=== PATIENT | female | born 1975 | race Hispanic/Latino ===

== ENCOUNTER 2019-04-07 09:47 | Emergency (ER) | payer SELFPAY ==
[~2019-04-07] VITALS: Ht 160 cm; Wt 74.0 kg
[~2019-04-07 09:47] MED LIST: FIORICET PO; NO MEDS; ONDANSETRON ODT8 MG PO; PERCOCET 5/325M1 TAB OR; SILVADENE1 % EX; ZOFRAN ODT4 MG PO
[2019-04-07 12:02] LABS: HEMATOCRIT 40.1 % (37.0-47.0); HEMOGLOBIN 13.8 g/dl (12.0-16.0); IMMATURE GRANULOCYTES 0.4 % (0.0-5.0); MEAN CELL VOLUME 87.2 fL CALC (80.0-100.0); MEAN CORPUSCULAR HGB CONC 34.4 g/L CALC (32.0-36.0); NEUT# 4.99 thou/uL (2.00-7.15); RED BLOOD COUNT 4.6 mill/uL (4.20-5.60); RED CELL DISTRI WIDTH 12.2 % (11.5-15.5)
[2019-04-07 12:15] LABS: ALBUMIN 4.4 g/dL (3.2-5.0); ALKALINE PHOSPHATASE 98 u/l (38-126); ANION GAP 16 (6-22 (CALC)); BUN 9 mg/dL (7-17); BUN/CREATININE RATIO 18 (12-20 (CALC)); CARBON DIOXIDE 24 mmol/l (22-30); CHLORIDE 106 mmol/l (95-108); CREATININE 0.5 mg/dL (0.5-1.0); GFR > 60 ML/MIN (>=60 (CALC)); GFR FOR AFR.AMER. > 60 ML/MIN (>=60 (CALC)); LIPASE 81 u/l (23-300); POTASSIUM 4.1 mmol/l (3.5-5.1); SGOT/AST 41 u/l (14-36); SODIUM 142 mmol/l (137-146)
[2019-04-07 12:17] LABS: BILIRUBIN, TOTAL 0.5 mg/dL (0.0-1.4)
[2019-04-07 12:46] LABS: TSH, 3RD GENERATION 3.52 uIU/mL (0.47 - 4.68)
[2019-04-07 14:26] VITALS: BP 149/68
[2019-04-07 14:38] LABS: URINE BILIRUBIN - DIPSTICK NEGATIVE (NEGATIVE); URINE BLOOD DIPSTICK LARGE (NEGATIVE); URINE COLOR YELLOW; URINE GLUCOSE - DIPSTICK NEGATIVE (NEGATIVE); URINE KETONE NEGATIVE (NEGATIVE); URINE LEUK ESTERASE NEGATIVE (NEGATIVE); URINE NITRITE - DIPSTICK NEGATIVE (Negative); URINE PROTEIN - DIPSTICK NEGATIVE (NEG-TRACE); URINE SPECIFIC GRAVITY <=1.005; URINE UROBILINOGEN - DIPSTICK 0.2 E.U./dL (0.2)
[2019-04-07 15:08] LABS: URINE RBC 25-50 RBC/hpf (0-5); URINE SQUAMOUS EPITHELIAL CELL FEW EPI/hpf (0-FEW)
== END 2019-04-07 14:48 | disposition short-term general hospital (02) | DRG 916 ==
LOC: ED 09:47
PROVIDERS: Family Medicine
DX: T78.3XXA Angioneurotic edema, initial encounter (principal); I10 Essential (primary) hypertension
CPT/HCPCS: Q9967

== ENCOUNTER 2022-02-23 08:37 | Emergency (ER) | payer BC ==
[~2022-02-23] VITALS: Ht 160 cm; Wt 72.0 kg
[2022-02-23 09:12] LABS: HEMOGLOBIN 14.9 g/dl (12.0-16.0); IMMATURE GRANULOCYTES 0.2 % (0.0-5.0); MEAN CELL VOLUME 89.8 fL CALC (80.0-100.0); MEAN CORPUSCULAR HGB 29.7 pG CALC (26.0-32.0); MEAN CORPUSCULAR HGB CONC 33.1 g/dL CAL (32.0-36.0); NEUT# 6.2 thou/uL (2.00-7.15); RED BLOOD COUNT 5.01 mill/uL (4.20-5.60); RED CELL DISTRI WIDTH 12.9 % (11.5-15.5)
[2022-02-23 09:13] VITALS: BP 107/76
[2022-02-23 09:22] LABS: ALBUMIN 4.4 g/dL (3.2-5.0); ALKALINE PHOSPHATASE 93 u/l (38-126); BILIRUBIN, TOTAL 0.6 mg/dL (0.0-1.4); BUN 10 mg/dL (7-17); BUN/CREATININE RATIO 17 (12-20 (CALC)); CARBON DIOXIDE 20 mmol/l (22-30); CHLORIDE 103 mmol/l (95-108); CREATININE 0.6 mg/dL (0.5-1.0); GFR FOR AFR.AMER. > 60 ML/MIN (>=60 (CALC)); GFR OTHER RACES > 60 ML/MIN (>=60 (CALC)); LIPASE 72 u/l (23-300); POTASSIUM 3.7 mmol/l (3.5-5.1); SGOT/AST 35 u/l (14-36); TOTAL PROTEIN 8.1 g/dL (6.3-8.2)
[2022-02-23 09:47] LABS: ANION GAP 13 (6-22 (CALC)); SODIUM 132 mmol/l (137-146)
[2022-02-23] MEDS ORDERED: CITRATE OF MEGNESIA PO (13:05)
[2022-02-23 13:16] LABS: URINE BILIRUBIN - DIPSTICK NEGATIVE (NEGATIVE); URINE BLOOD DIPSTICK SMALL (NEGATIVE); URINE GLUCOSE - DIPSTICK 500 mg/dL (NEGATIVE); URINE KETONE NEGATIVE (NEGATIVE); URINE LEUK ESTERASE NEGATIVE (NEGATIVE); URINE PROTEIN - DIPSTICK NEGATIVE (NEG-TRACE); URINE SPECIFIC GRAVITY <=1.005; URINE UROBILINOGEN - DIPSTICK 0.2 E.U./dL (0.2)
[2022-02-23 13:19] LABS: URINE COLOR STRAW; URINE NITRITE - DIPSTICK NEGATIVE (Negative)
[2022-02-23 13:27] LABS: URINE SQUAMOUS EPITHELIAL CELL MODERATE EPI/hpf (0-FEW)
[2022-02-23] MEDS ORDERED: MIRALAX17 GM PO (13:31)
[2022-02-23 14:06] VITALS: BP 107/76
== END 2022-02-23 14:06 | disposition home or self-care (01) | DRG 392 ==
LOC: ED 08:37
PROVIDERS: Family Medicine
DX: K59.00 Constipation, unspecified (principal); I10 Essential (primary) hypertension; Z90.710 Acquired absence of both cervix and uterus
CPT/HCPCS: Q9967